=== PATIENT | female | born 1940 | race Caucasian/White ===

== ENCOUNTER → 2017-11-02 03:00 | Outpatient (CLI) | payer MEDICARE, OTHER, SELFPAY ==
[2017-11-02 11:08] LABS: ALT 60 U/L (12-78); AST 34 U/L (15-37); Albumin 3.9 g/dL (3.4-5.0); Alkaline Phosphatase 74 U/L (46-116); Anion Gap 9.6 mmol/L (3-11); BUN 14 mg/dL (7-18); Bilirubin, Total 0.6 mg/dL (0.2-1.0); CO2 30.4 mmol/L (21.0-32.0); CREATININE 1.06 mg/dL (0.55-1.02); Calcium 8.5 mg/dL (8.5-10.1); Chloride 102 mmol/L (98-107); Cholesterol 231 mg/dL (50-200); Estimated GFR 50.54 (mL/min/1.73m2); Glucose 84 mg/dL (70-100); HDL Cholesterol 64 mg/dL (40-60); LDL CHOLESTEROL 148 mg/dL (<100); Potassium 3.8 mmol/L (3.5-5.1); Sodium 142 mmol/L (136-145); Total Protein 7.6 g/dL (6.4-8.2); Triglyceride 134 mg/dL (30-150)
== END ==
DX: E78.5 Hyperlipidemia, unspecified (principal); K21.9 Gastro-esophageal reflux disease without esophagitis; R63.8 Other symptoms and signs concerning food and fluid intake; M15.9 Polyosteoarthritis, unspecified
CPT/HCPCS: 36415; 80053; 80061; 83721

== ENCOUNTER 2018-06-13 15:49 | Outpatient (CLI) | payer MEDICARE, BC, OTHER, SELFPAY ==
--- NOTE | 2018-06-13 14:30 | DI.US_ITS ---
SYMPTOM/DIAGNOSIS: POPLITEAL PAIN, ABSENT PULSES, ? DVT, M79.609 RIGHT LOWER EXTREMITY ULTRASOUND: The femoral and popliteal veins and visualized calf veins are freely compressible. No thrombus is visible. The doppler venous wave form augments normally. The saphenous vein appears free of thrombus. A Cruz's cyst is seen measuring 4.5 cm. in length. IMPRESSION: Cruz's cyst. No evidence of DVT.
== END 2018-06-13 16:09 ==
PROVIDERS: Visit Provider Nurse Practitioner Family
DX: M79.604 Pain in right leg (principal); M71.21 Synovial cyst of popliteal space [Baker], right knee
CPT/HCPCS: 93971

== ENCOUNTER 2018-06-28 10:55 | Outpatient (CLI) | payer MEDICARE, OTHER, SELFPAY ==
--- NOTE | 2018-06-28 10:53 | DI.RAD_ITS ---
SYMPTOMS/DIAGNOSIS: PAIN RIGHT KNEE: Two views. No priors. There is chondrocalcinosis present. There is moderate narrowing of the patellofemoral joint space. Periarticular spurring is seen involving the lateral femorotibial joint and the patellofemoral joint. The bones are intact. No radiopaque foreign bodies are seen in the soft tissues. IMPRESSION: Mild to moderate arthritic changes of the right knee.
== END 2018-06-28 11:15 ==
PROVIDERS: Visit Provider Orthopaedic Surgery
DX: M25.561 Pain in right knee (principal); M17.11 Unilateral primary osteoarthritis, right knee
CPT/HCPCS: 20610; 99201; 73560; J1040

== ENCOUNTER 2018-09-28 01:41 | Outpatient (CLI) | payer MEDICARE, OTHER, SELFPAY ==
[2018-09-28 09:55] LABS: ALT 58 U/L (12-78); AST 37 U/L (15-37); Albumin 3.9 g/dL (3.4-5.0); Alkaline Phosphatase 78 U/L (46-116); BUN 22 mg/dL (7-18); Bilirubin, Total 0.7 mg/dL (0.2-1.0); CREATININE 0.93 mg/dL (0.55-1.02); Calcium 8.8 mg/dL (8.5-10.1); Calculated LDL 138 mg/dL; Chloride 104 mmol/L (98-107); Cholesterol 207 mg/dL (50-200); Estimated GFR 58.61 (mL/min/1.73m2); Glucose 100 mg/dL (70-100); HDL Cholesterol 45 mg/dL (40-60); Potassium 4.4 mmol/L (3.5-5.1); Sodium 143 mmol/L (136-145); Total Protein 7.2 g/dL (6.4-8.2); Triglyceride 122 mg/dL (30-150)
== END 2018-09-28 02:01 ==
DX: K21.9 Gastro-esophageal reflux disease without esophagitis (principal); M85.80 Other specified disorders of bone density and structure, unspecified site; R06.09 Other forms of dyspnea; R63.8 Other symptoms and signs concerning food and fluid intake; Z78.9 Other specified health status; E78.5 Hyperlipidemia, unspecified
CPT/HCPCS: 36415; 80053; 80061; 83721

== ENCOUNTER 2020-04-16 03:30 | Outpatient (CLI) | payer MEDICARE, OTHER, SELFPAY ==
[2020-04-16 13:06] LABS: ALT 53 U/L (14-59); AST 29 U/L (15-37); Albumin 3.9 g/dL (3.4-5.0); Alkaline Phosphatase 65 U/L (46-116); Anion Gap 5.8 mmol/L (3-11); BUN 18 mg/dL (7-18); Bilirubin, Total 0.6 mg/dL (0.2-1.0); CO2 29.2 mmol/L (21.0-32.0); CREATININE 0.95 mg/dL (0.55-1.02); Calcium 8.7 mg/dL (8.5-10.1); Calculated LDL 134 mg/dL (<100); Chloride 105 mmol/L (98-107); Cholesterol 213 mg/dL (<200); Estimated GFR 57.04 (mL/min/1.73m2); Glucose 102 mg/dL (74-106); HDL Cholesterol 49 mg/dL (40-60); Potassium 4.2 mmol/L (3.5-5.1); Sodium 140 mmol/L (136-145); Total Protein 7.2 g/dL (6.4-8.2); Triglyceride 152 mg/dL (<150)
== END 2020-04-16 03:50 ==
DX: E78.5 Hyperlipidemia, unspecified (principal)
CPT/HCPCS: 36415; 80053; 80061

== ENCOUNTER 2022-06-24 16:44 | Outpatient (REF) | payer MEDICARE, OTHER, SELFPAY ==
[2022-06-24 13:10] LABS: TSH (W/Ref FT4) 2.65 uIU/mL (0.36-3.74)
== END 2022-06-24 16:45 | disposition home or self-care (01) ==
LOC: LBN 16:44
PROVIDERS: PCP Nurse Practitioner Family; Visit Provider Nurse Practitioner Family
DX: E78.5 Hyperlipidemia, unspecified (principal); R23.2 Flushing
CPT/HCPCS: 84443

== ENCOUNTER 2022-06-26 00:57 | Outpatient (CLI) | payer MEDICARE, OTHER, SELFPAY ==
--- NOTE | 2022-06-26 10:06 | DI.RAD_ITS ---
Exam(s) XR ARTHRITIS SERIES EXAM: XR ARTHRITIS SERIES CLINICAL HISTORY: increasing pain, OSTEOARTHRITIS,M15.9. TECHNIQUE: 2D digital imaging was performed. Three images were obtained. COMPARISON: No exams were available for comparison FINDINGS: BONES: No acute fracture is present. No bony destructive lesion is seen. JOINTS: No dislocation present. In the left hand, there are marked degenerative changes present. Th e findings are characterized by joint space narrowing and bony hypertrophy. In the wrist, the findin gs are most marked at the 1st CMC joint and the interphalangeal joints of the fingers. There is some narrowing of the 3rd and 4th MCP joints. In the right hand and wrist, there are marked degenerative changes characterized by joint space narrowing and bony hypertrophy. In the right wrist, the findin gs are most marked at the articulation of the scaphoid and the trapezium. In the hand, findings are most marked at the distal interphalangeal joints. SOFT TISSUE: Chondrocalcinosis of the TFCC is seen bilaterally. IMPRESSION: Marked osteoarthritis of the hands and wrist as described. DATA REPOSITORY: RADIATION DOSE DELIVERED:
--- NOTE | 2022-06-26 10:07 | DI.RAD_ITS ---
Exam(s) XR KNEE RT 3V AP,LAT,JAIME EXAM: XR KNEE RT 3V AP,LAT,JAIME CLINICAL HISTORY: increasing pain RT KNEE, M25.561. TECHNIQUE: 2D digital imaging was performed of the right knee. Three views obtained. AP, lateral an d PA tunnel views were obtained. COMPARISON: CR XR knee RT 2V AP,lat from 06/28/2018 FINDINGS: BONES: No acute fracture is present. No bony destructive lesion is seen. JOINTS: The knee is normally aligned. No joint effusion is seen. Mild narrowing of the medial femoral tibial joint is present. There is chondrocalcinosis seen both medially and laterally. There is mar ked narrowing of the patellofemoral joint. Tricompartment spurring is present. SOFT TISSUE: Normal. IMPRESSION: Osteoarthritis of the knee. Findings are most marked at the patellofemoral joint. DATA REPOSITORY: RADIATION DOSE DELIVERED:
== END 2022-06-26 01:17 ==
LOC: DI 00:58
PROVIDERS: PCP Nurse Practitioner Family; Visit Provider Nurse Practitioner Family
DX: M25.561 Pain in right knee (principal); M15.9 Polyosteoarthritis, unspecified
CPT/HCPCS: 73562; 73120

== ENCOUNTER → 2022-07-28 10:32 | Outpatient (BNVA) | payer MEDICARE, BC, OTHER, SELFPAY | PROVIDERS: PCP Nurse Practitioner Family; Referring Provider Nurse Practitioner Family; Visit Provider Physician Assistant | DX: M17.11 Unilateral primary osteoarthritis, right knee (principal) | CPT/HCPCS: 20610; 99203; J1040 ==

== ENCOUNTER 2022-10-02 22:44 | Emergency (ER) | payer MEDICARE, BC, OTHER, SELFPAY ==
[2022-10-02 22:52] VITALS: BP 165/87; PULSE 58; RESP 22; TEMP 36.4; O2SAT 92
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
--- NOTE | 2022-10-02 23:06 | DI.CT_ITS ---
Exam(s) CT THORACIC LUMBAR SPINE REC EXAM: CT THORACIC LUMBAR SPINE REC CLINICAL HISTORY: fall, back pain TECHNIQUE: COMPARISON: CT CT CHEST/ABD/PEL W from 10/03/2022 FINDINGS: THORACIC SPINAL COLUMN: No evidence of acute fracture or listhesis. No facet arthropathy nor so face t malalignment. No acute compromise of the canal. There are fractures of both 1st ribs as well as fracture of the right 2nd rib LUMBOSACRAL SPINAL COLUMN: No evidence of compression fracture or listhesis. No pars defects. Advan timoteo chronic disc space narrowing at L5-S1 level noted. Mild facet degenerative changes. No facet ma lalignment. IMPRESSION: No acute fractures of the thoracic and lumbar spinal columns. Subtle fractures of upper ribs as described above.
--- NOTE | 2022-10-02 23:06 | DI.CT_ITS ---
Exam(s) CT CHEST/ABD/PEL W EXAM: CT CHEST/ABD/PEL W CLINICAL HISTORY: fall, thoracic back pain. TECHNIQUE: Imaging Protocol: Axial computed tomography images with coronal and sagittal reformatted images were created and reviewed CONTRAST MATERIAL: Intravenous: Omnipaque 350 Contrast volume:100 ml Oral: None COMPARISON: CT CT THORACIC LUMBAR SPINE REC from 10/03/2022 FINDINGS: CHEST: Please note this patient has fracture of left side of C2 vertebral body as seen on other CT scan perf ormed same date. RIBS/LUNGS: There is a subtle age indeterminate fracture both 1st ribs as well as posterior lateral a spect of the right 2nd rib. There is also a displaced fracture of the posterior aspect of the right 3rd rib with overlying pleural thickening and a mildly displaced fracture of the lateral aspect of th e right 4th rib. No other rib fractures identified. No sternal fracture. No clavicular fractures. There is mild infiltrate posteriorly in the right upper lobe and superior segment right lower lobe, t his is probably related to the adjacent fractures. There is also some infiltrate in the anterior bas al segment of the left lower lobe and inferior lingular segment of the left lung as well as the basal segments. No associated pleural effusions. There is no evidence of pneumothorax. A calcified gran uloma is incidentally noted in the right middle lobe. MEDIASTINUM: No evidence of sternal fracture or mediastinal hematoma. No hilar adenopathy. Calcifie d subcarinal lymph nodes noted. No axillary nor supraclavicular adenopathy. Thyroid unremarkable. CARDIAC: Heart size is normal. There is no pericardial effusion.Coronary artery calcification in the LAD noted-moderate. Caliber thoracic aorta is upper normal. No dissection. OSSEOUS: Multiple rib fractures as described above.No vertebral fractures evident.. ABDOMEN: There is no ascites. No evidence of mesenteric nor bowel wall hematoma. LIVER: Liver is hypodense implying steatosis. No evidence of liver laceration. No a patent lesions. No dilated intrahepatic ducts. GALLBLADDER/BILIARY: Gallbladder is contracted. No obvious calculi. CBD is not dilated. PANCREAS: No evidence of pancreatic mass nor dilatation of the pancreatic duct. SPLEEN: Spleen size normal. No laceration. Splenic granuloma noted. Splenic and portal veins are p atent. ADRENALS: There are no significant adrenal masses. KIDNEYS: No evidence of renal laceration. No significant focal renal findings. No calculi. No hydr onephrosis.. ABDOMINAL AORTA: Upper normal size. No dissection. Aortoiliac segments patent. LYMPH NODES: There is no retroperitoneal nor paraaortic adenopathy. ABDOMINAL WALL: No evidence of significant anterior abdominal wall nor inguinal hernia. GI: There is no evidence of bowel obstruction. PELVIS: LYMPH NODES: There is no intrapelvic nor inguinal adenopathy. GI: No evidence of appendicitis.No evidence of sigmoid diverticulitis. URINARY BLADDER: No calculi nor masses evident REPRODUCTIVE: Uterus surgically absent. No abnormal adnexal masses. No free fluid in the pelvis. OSSEOUS: No significant osseous lesions. No fractures. Chronic disc space narrowing L5-S1. IMPRESSION: 1. There are fractures of the right 1st, 2nd, 3rd, and 4th ribs, with the posterior aspect right 3rd rib fracture being significantly displaced. There is also a fracture of the left 1st rib. 2. Scattered lung infiltrates which are probably related to hypoinflation secondary to the rib fractu res. There are no pleural effusions and there is no pneumothorax. 3. No acute findings in the abdomen pelvis. First read by [facility]. Final report called by myself to ER physician 10/03/2022 RADIATION DOSE DELIVERED: 1196.66 mGy.cm Total DLP DATA REPOSITORY: All CT scans at this facility are submitted to the National Radiology Data Registry (NRDR) Dose Index Registry (DIR) with the [employer] (ACR). RADIATION OPTIMIZATION: All CT scans at this facility use at least one of these dose optimization te chniques: automated exposure control; mA and/or kV adjustment per patient size (includes targeted exa ms where dose is matched to clinical indication); or iterative reconstruction.
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
[2022-10-02 23:33] LABS: Abs Immature Grans 0.13 10^3/uL (0.0-0.06); Absolute Basophil Count 0.04 10^3/uL (0.0-0.2); Absolute Eosinophil Count 0.07 10^3/uL (0.0-0.7); Absolute Lymphocyte Count 1.17 10^3/uL (1.2-3.4); Absolute Monocyte Count 0.57 10^3/uL (0.1-0.8); Absolute Neutrophil Count 7.13 10^3/uL (1.2-6.7); Basophils % 0.4; Eosinophils % 0.8; HCT 36.3 % (36.0-46.0); HGB 12.2 g/dL (11.2-15.7); Immature Grans % 1.4; Lymphocytes % 12.8; MCH 33.2 pg (27.0-33.0); MCHC 33.6 % (32.0-36.0); MCV 99 fL (80-95); MPV 8.7 fL (8.0-11.0); Monocytes % 6.3; Neutrophils % 78.3; Platelet Count 258 10^3/uL (130-400); RBC 3.67 10^6/uL (3.93-5.22); RDW-SD 43.7 fL; WBC 9.11 10^3/uL (4.4-10.8)
[2022-10-02 23:47] LABS: Prothrombin Time 10.1 sec (9.3-11.0)
[2022-10-02] MEDS: Normal Saline 500 ML IV (23:49)
[2022-10-02 23:50] LABS: ALT 94 U/L (14-59); AST 114 U/L (15-37); Albumin 3.4 g/dL (3.4-5.0); Alkaline Phosphatase 79 U/L (46-116); Anion Gap 7.7 mmol/L (3-11); BUN 21 mg/dL (7-18); Bilirubin, Total 0.3 mg/dL (0.2-1.0); CO2 27.3 mmol/L (21.0-32.0); CREATININE 0.8 mg/dL (0.55-1.02); Calcium 8.6 mg/dL (8.5-10.1); Chloride 102 mmol/L (98-107); ETHANOL BLOOD 121.9 mg/dL (<10); Estimated GFR 74.44 (mL/min/1.73m2); Glucose 161 mg/dL (74-106); Lipase 56 U/L (16-77); Magnesium 1.8 mg/dL (1.8-2.4); Potassium 3.2 mmol/L (3.5-5.1); Sodium 137 mmol/L (136-145); Total Protein 7.4 g/dL (6.4-8.2)
[2022-10-03] VITALS (51 sets, daily range): BP systolic 146–155; BP diastolic 69–110; PULSE 64–74; RESP 9–18; TEMP 36.7; O2SAT 92–96
[2022-10-03 00:07] LABS: Bilirubin Negative (Negative); Blood Small (Negative); Clarity Clear (Clear); Glucose Negative (Negative); Ketones Negative (Negative); Leukocyte Esterase Trace (Negative); Nitrite Positive (Negative); Urobilinogen 0.2 mg/dL (Up to 0.2)
[2022-10-03 00:08] LABS: Bacteria Moderate HPF (Negative); C & S Indicated? No/Sq. Contamination; Casts Negative LPF (Negative); Crystals Negative HPF (Negative); Epithelial Cells Moderate HPF (Negative); Mucus Negative (Negative)
[2022-10-03] MEDS: Normal Saline - Diluent 50 ML VIAL IJ ×2 (00:12→01:03)
[2022-10-03] MEDS: Omnipaque 350 MG/ML 100 ML BTL IJ ×2 (00:12→01:02)
--- NOTE | 2022-10-03 00:15 | DI.CT_ITS ---
Exam(s) CT BRAIN NECK CTA EXAM: CT BRAIN NECK CTA CLINICAL HISTORY: Fx C1 2 into V aa foramen. TECHNIQUE: Imaging Protocol: Axial CT angiography was performed with multi-slice acquisition and mu lti-planar and/or 3D reconstructions. CONTRAST MATERIAL: Intravenous: Omnipaque 350 Contrast volume:structured data in ml COMPARISON: CT CT THORACIC LUMBAR SPINE REC from 10/03/2022 FINDINGS: CTA Neck W: Aortic arch anatomy: The aortic arch anatomy is conventional and there is no significant stenosis at the origin of the great vessels off of the aortic arch. No intimal flap evident. Anterior circulation: Both common carotid arteries ascend with normal luminal diameters. At the level the carotid bulbs and proximal internal carotid arteries there is minimal plaque without hemodynamically significant stenosis evident. Posterior circulation: Both vertebral arteries originate in conventional fashion off of the subclavian arteries and there is no obvious stenosis at the origin of the vertebral arteries. Both vertebral arteries exhibit normal luminal diameters within the foramen transversarium. No evidence of compromise of the left vertebral artery lumen at the level of the left C2 fracture sit e. Above this level there is some plaque in the left vertebral artery at the skull base but without tight stenosis, intraluminal thrombus, nor dissection. Both vertebral arteries contribute to the formation of the basilar artery at the skull base. CTA Brain W: Anterior circulation: Both internal carotid arteries are patent in the skull base-carotid canals. There is circumferential mural calcification of the internal carotid arteries within the cavernous sinuses but without high-g rade stenosis. The supraclinoid aspects of the ICAs are patent. Both A1 segments are patent as are the anterior cer ebral arteries and there is no evidence of aneurysm at the level of the anterior communicating artery . Both middle cerebral arteries are patent with no evidence of significant stenosis nor intraluminal th rombus. There also no aneurysms of these vessels. Posterior circulation: The basilar artery ascends in the midline. Distally it gives off patent bilateral superior cerebella r arteries. Above this level the basilar artery terminates as patent bilateral posterior cerebral arteries. There is no evidence of aneurysm at the tip of the basilar artery nor elsewhere in the [id number] is. CT BRAIN: There is no evidence of intracranial hemorrhage, mass effect, or shift of midline structures. There are no extra-axial fluid collections. Ventricles are not enlarged or shifted. There are no ring enh ancing lesions in the brain and no abnormal meningeal enhancement. IMPRESSION: 1. Patent carotid arteries in the neck. No hemodynamically significant stenosis. 2. Patent vertebral arteries. No intraluminal thrombus nor dissection. No obvious abnormality of th e vessel at the level of the left side C2 vertebral artery fracture. 3. Patent intracranial arteries. 4. No acute intracranial findings. RADIATION DOSE DELIVERED: 2,315.27mGy.cm Total DLP DATA REPOSITORY: All CT scans at this facility are submitted to the National Radiology Data Registry (NRDR) Dose Index Registry (DIR) with the [employer] ([employer]). RADIATION OPTIMIZATION: All CT scans at this facility use at least one of these dose optimization te chniques: automated exposure control; mA and/or kV adjustment per patient size (includes targeted exa ms where dose is matched to clinical indication); or iterative reconstruction.
--- NOTE | 2022-10-03 00:16 | DI.VRAD_ITS ---
Addendum created by Vitaly Clements MD on 10/03/2022 12:20:34 AM EDT: THIS REPORT CONTAINS FINDINGS THAT MAY BE CRITICAL TO PATIENT CARE. The findings were verbally communicated via telephone conference with Shilpa Linton at 12:18 AM EDT on 10/03/2022. The findings were acknowledged and understood. Initial report created on 10/03/2022 12:16:07 AM EDT: PROCEDURE INFORMATION: Exam: CT Cervical Spine Without Contrast Exam date and time: 10/02/2022 11:52 PM Age: 82 years old Clinical indication: Injury or trauma; Fall; Concussion/head injury TECHNIQUE: Imaging protocol: Computed tomography of the cervical spine without contrast. Radiation optimization: All CT scans at this facility use at least one of these dose optimization techniques: automated exposure control; mA and/or kV adjustment per patient size (includes targeted exams where dose is matched to clinical indication); or iterative reconstruction. COMPARISON: No relevant prior studies available. FINDINGS: Bones/joints: There is a left-sided C2 fracture in the lateral mass extending into the vertebral artery foramen. Faint fracture of the inferior aspect of the left C1 lateral mass noted. The C1 and C2 neural arches are otherwise grossly intact Loss of cervical lordosis is presumably on a degenerative basis. No significant central canal stenosis. Multilevel foraminal stenosis Lungs: Mild apical scarring Soft tissues: Unremarkable. IMPRESSION: Acute left-sided C1 and C2 fractures. Involvement of the left vertebral artery foramen. Consider CT angiography of the head and neck Dictated and Authenticated by: Vitaly Clements MD. Ordering:JAZMÍN Massey MD
--- NOTE | 2022-10-03 00:18 | DI.VRAD_ITS ---
PROCEDURE INFORMATION: Exam: CT Chest With Contrast; Diagnostic Exam date and time: 10/03/2022 12:01 AM Age: 82 years old Clinical indication: Injury or trauma; Generalized; Blunt trauma (contusions or hematomas); Injury details: Fall ETOH; Additional info: Fall, thoracic back pain TECHNIQUE: Imaging protocol: Diagnostic computed tomography of the chest with contrast. Radiation optimization: All CT scans at this facility use at least one of these dose optimization techniques: automated exposure control; mA and/or kV adjustment per patient size (includes targeted exams where dose is matched to clinical indication); or iterative reconstruction. Contrast material: OMNI 350; Contrast volume: 100 ml; Contrast route: INTRAVENOUS (IV); COMPARISON: CT CERVICAL SPINE WO 10/02/2022 11:52 PM FINDINGS: Lungs: Mild subsegmental atelectasis versus scarring. Calcified right middle lobe granuloma No consolidation. No masses. Pleural spaces: Unremarkable. No pneumothorax. No pleural effusion. Heart: Unremarkable. No cardiomegaly. No pericardial effusion. Lymph nodes: Unremarkable. No enlarged lymph nodes. Vasculature: Unremarkable. No aortic aneurysm. Bones/joints: Unremarkable. No acute fracture. Soft tissues: Unremarkable. IMPRESSION: No acute findings. PROCEDURE INFORMATION: Exam: CT Abdomen And Pelvis With Contrast Exam date and time: 10/03/2022 12:01 AM Age: 82 years old Clinical indication: Injury or trauma; Generalized; Blunt trauma (contusions or hematomas); Injury details: Fall ETOH; Additional info: Fall, thoracic back pain TECHNIQUE: Imaging protocol: Computed tomography of the abdomen and pelvis with contrast. Radiation optimization: All CT scans at this facility use at least one of these dose optimization techniques: automated exposure control; mA and/or kV adjustment per patient size (includes targeted exams where dose is matched to clinical indication); or iterative reconstruction. Contrast material: OMNI 350; Contrast volume: 100 ml; Contrast route: INTRAVENOUS (IV); COMPARISON: No relevant prior studies available. FINDINGS: Liver: Hepatomegaly and diffuse fatty infiltrationNo mass. Gallbladder and bile ducts: Contracted No calcified stones. No ductal dilation. Pancreas: Normal. No ductal dilation. Spleen: Normal. No splenomegaly. Adrenal glands: Normal. No mass. Kidneys and ureters: Left renal scarring noted. Questionable hypodense focus in the anterior left renal upper pole. Additional indeterminate hypodensity in the mid to lower poles of the kidneys No hydronephrosis. Stomach and bowel: Unremarkable. No obstruction. No mucosal thickening. Appendix: No evidence of appendicitis. Intraperitoneal space: Unremarkable. No free air. No significant fluid collection. Vasculature: Unremarkable. No abdominal aortic aneurysm. Lymph nodes: Unremarkable. No enlarged lymph nodes. Urinary bladder: Unremarkable as visualized. Reproductive: Unremarkable as visualized. Bones/joints: Unremarkable. No acute fracture. Soft tissues: Unremarkable. IMPRESSION: No acute findings. No solid organ injury detected Questionable abnormal left kidney as described which may represent focal pyelonephritis versus underlying lesion. Consider further evaluation on a nonurgent basis if not already performed Dictated and Authenticated by: Vitaly Clements MD. Ordering:JAZMÍN Massey MD
--- NOTE | 2022-10-03 00:27 | DI.VRAD_ITS ---
PROCEDURE INFORMATION: Exam: CT Thoracic Spine Without Contrast Exam date and time: 10/03/2022 12:01 AM Age: 82 years old Clinical indication: Injury or trauma; Fall; Blunt trauma (contusions or hematomas); Additional info: Fall, thoracic back pain TECHNIQUE: Imaging protocol: Computed tomography of the thoracic spine without contrast. Radiation optimization: All CT scans at this facility use at least one of these dose optimization techniques: automated exposure control; mA and/or kV adjustment per patient size (includes targeted exams where dose is matched to clinical indication); or iterative reconstruction. COMPARISON: CT CERVICAL SPINE WO 10/02/2022 11:52 PM FINDINGS: Bones/joints: No acute fracture. Alignment is grossly maintained. No significant disc bulge or herniation. No severe spinal canal stenosis. No significant neural foraminal narrowing. Soft tissues: Unremarkable. Left 1st rib fracture noted of indeterminate age IMPRESSION: No acute thoracic fracture Left 1st rib fracture of indeterminate age PROCEDURE INFORMATION: Exam: CT Lumbar Spine Without Contrast Exam date and time: 10/03/2022 12:01 AM Age: 82 years old Clinical indication: Injury or trauma; Fall; Blunt trauma (contusions or hematomas); Additional info: Fall, thoracic back pain TECHNIQUE: Imaging protocol: Computed tomography of the lumbar spine without contrast. Radiation optimization: All CT scans at this facility use at least one of these dose optimization techniques: automated exposure control; mA and/or kV adjustment per patient size (includes targeted exams where dose is matched to clinical indication); or iterative reconstruction. COMPARISON: No relevant prior studies available. FINDINGS: Bones/joints: No acute fracture. Alignment is grossly maintained. No significant disc bulge or herniation. No severe spinal canal stenosis. No significant neural foraminal narrowing. Soft tissues: Unremarkable. IMPRESSION: No acute findings. Dictated and Authenticated by: Vitaly Clements MD. Ordering:JAZMÍN Massey MD
[2022-10-03] MEDS: HYDROmorphone 2 MG/ML SYR 1 MG IVP (00:36)
[2022-10-03] MEDS: Ondansetron 4 MG/2 ML VIAL 8 MG IVP (00:38)
[2022-10-03] MEDS: Normal Saline 1,000 ML 1000 ML IV (00:38)
--- NOTE | 2022-10-03 01:00 | RT.EKG_ITS ---
APPROVED REPORT Exam: Resting ECG Reason for Exam: trauma Patient Location: E HR:67 bpm ECG Measurements Heart Rate 67 AXIS WI 173 P 46 QRSd 90 QRS -38 QT 450 T -15 QTc 474 Conclusion Sinus rhythm...normal P axis, V-rate 60- 99 Atrial premature complex...SV complex w/ short R-R interval Inferior infarct, old...Q >35mS, II III aVF Q waves inferiorly, flipped T waves V1-4, flat T waves V5,6 new vs 2007
--- NOTE | 2022-10-03 01:27 | DI.VRAD_ITS ---
PROCEDURE INFORMATION: Exam: CT Head Without Contrast Exam date and time: 10/03/2022 12:53 AM Age: 82 years old Clinical indication: Injury or trauma; Fall; Concussion/head injury and other: Radiologist recommended cta head and neck due to c1-c2 fracture TECHNIQUE: Imaging protocol: Computed tomography of the head without contrast. Radiation optimization: All CT scans at this facility use at least one of these dose optimization techniques: automated exposure control; mA and/or kV adjustment per patient size (includes targeted exams where dose is matched to clinical indication); or iterative reconstruction. COMPARISON: CT CERVICAL SPINE WO 10/02/2022 11:52 PM FINDINGS: Brain: Streak artifact in the posterior fossa limits evaluation. There are moderate periventricular and subcortical lucencies consistent with chronic microvascular ischemic changes. The leblanc-white differentiation is maintained. No hemorrhage. No edema. Cerebral ventricles: No ventriculomegaly. Paranasal sinuses: Visualized sinuses are unremarkable. No fluid levels. Mastoid air cells: Visualized mastoid air cells are well aerated. Bones/joints: Unremarkable. No acute fracture. Soft tissues: Unremarkable. IMPRESSION: No acute intracranial abnormality. Chronic microvascular ischemic changes. Evaluation is suboptimal in the posterior fossa due to streak artifact. PROCEDURE INFORMATION: Exam: CTA Head Without And With Contrast, Arteriography Exam date and time: 10/03/2022 12:53 AM Age: 82 years old Clinical indication: Injury or trauma; Fall; Concussion/head injury and other: Radiologist recommended cta head and neck due to c1-c2 fracture TECHNIQUE: Imaging protocol: Computed tomographic angiography of the head without and with contrast. Exam focused on the arteries. 3D rendering (Not supervised by radiologist): MIP and/or 3D reconstructed images were created by the technologist. Contrast material: OMNI 350; Contrast volume: 85 ml; Contrast route: INTRAVENOUS (IV); COMPARISON: CT CERVICAL SPINE WO 10/02/2022 11:52 PM FINDINGS: ANTERIOR CIRCULATION: Right internal carotid artery: Intracranial segment is patent with no significant stenosis or occlusion. No aneurysm. Right middle cerebral artery: No occlusion or significant stenosis. No aneurysm. Right anterior cerebral artery: No occlusion or significant stenosis. No aneurysm. Left internal carotid artery: Intracranial segment is patent with no significant stenosis. No aneurysm. Left middle cerebral artery: No occlusion or significant stenosis. No aneurysm. Left anterior cerebral artery: No occlusion or significant stenosis. No aneurysm. POSTERIOR CIRCULATION: Right vertebral artery: No occlusion or significant stenosis. No aneurysm. Left vertebral artery: No occlusion or significant stenosis. No aneurysm. Basilar artery: No occlusion or significant stenosis. No aneurysm. Right posterior cerebral artery: No occlusion or significant stenosis. No aneurysm. Left posterior cerebral artery: No occlusion or significant stenosis. No aneurysm. HEAD: Brain: Normal. No hemorrhage. Unremarkable white matter. No mass effect. Cerebral ventricles: Normal. No ventriculomegaly. Bones/joints: Unremarkable. No acute fracture. Paranasal sinuses: Visualized sinuses are normal. No fluid levels. Mastoid air cells: Visualized mastoids are normal. No mastoid effusion. Soft tissues: Unremarkable. IMPRESSION: No large vessel occlusion. PROCEDURE INFORMATION: Exam: CTA Neck Without And With Contrast Exam date and time: 10/03/2022 12:53 AM Age: 82 years old Clinical indication: Injury or trauma; Fall; Concussion/head injury and other: Radiologist recommended cta head and neck due to c1-c2 fracture TECHNIQUE: Imaging protocol: Computed tomographic angiography of the neck without and with contrast. 3D rendering (Not supervised by radiologist): MIP and/or 3D reconstructed images were created by the technologist. Radiation optimization: All CT scans at this facility use at least one of these dose optimization techniques: automated exposure control; mA and/or kV adjustment per patient size (includes targeted exams where dose is matched to clinical indication); or iterative reconstruction. Contrast material: OMNI 350; Contrast volume: 85 ml; Contrast route: INTRAVENOUS (IV); COMPARISON: CT CERVICAL SPINE WO 10/02/2022 11:52 PM FINDINGS: Right common carotid artery: No stenosis. No dissection or occlusion. Right internal carotid artery: No stenosis of the extracranial segment. No dissection or occlusion. Right external carotid artery: No occlusion or stenosis of the origin. Left common carotid artery: No stenosis. No dissection or occlusion. Left internal carotid artery: No stenosis of the extracranial segment. No dissection or occlusion. Left external carotid artery: No occlusion or stenosis of the origin. Right vertebral artery: No stenosis. No dissection or occlusion. Left vertebral artery: No stenosis. No dissection or occlusion. Soft tissues: Normal. No significant soft tissue swelling. Bones/joints: No acute fracture. IMPRESSION: No stenosis or occlusion. REFERENCES: NASCET CRITERIA. The degree of stenosis in the cervical segment of the internal carotid artery is based on NASCET criteria. Normal is no stenosis. Mild is less than 50% stenosis. Moderate is 50-69% stenosis. Severe is 70% to 99% stenosis. Total occlusion is no detectable patent lumen. Dictated and Authenticated by: Shane Parmar MD. Ordering:JAZMÍN Massey MD
--- NOTE | 2022-10-03 02:19 | NUR.NOTE ---
2308: Pt BIBEMS w/ c-collar in place and high concern for cervical spine injury. Explained cervical spine precautions to pt, who was moving all extremities vigorously and trying to turn/sit up etc unassisted. Advised pt that this was a high risk behavior multiple times and attempted to provide education and redirect pt. Despite all these interventions and effective pain management, pt still needs occasional reminder to remain compliant w/ prescribed activity restriction
== END 2022-10-03 02:44 | disposition short-term general hospital (02) ==
PROVIDERS: Emergency Provider Emergency Medicine; PCP Nurse Practitioner Family
DX: S12.000A Unspecified displaced fracture of first cervical vertebra, initial encounter for closed fracture (principal); S12.100A Unspecified displaced fracture of second cervical vertebra, initial encounter for closed fracture; S22.32XA Fracture of one rib, left side, initial encounter for closed fracture; W10.9XXA Fall (on) (from) unspecified stairs and steps, initial encounter
CPT/HCPCS: 70496; 70498; 74177; 80053; 82805; 83690; 93005; 96361; 96374; 96375; 99285; 71260; 72125; 80320; 81003; 81015; 83735; 85025; 85610; 85730; 93010; J1170; J2405; J3490

== ENCOUNTER 2024-07-05 01:49 | Outpatient (CLI) | payer MEDICARE, BC, OTHER, SELFPAY ==
--- NOTE | 2024-07-05 07:15 | DI.RAD_ITS ---
Exam(s) XR KNEE LT 3V AP,LAT,JAIME EXAM: XR KNEE LT 3V AP,LAT,JAIME CLINICAL HISTORY: continued LT KNEE PAIN,M25.552. TECHNIQUE: 2D digital imaging was performed. Three views. COMPARISON: CR LEFT KNEE 3 VIEW COMPLETE from 01/17/2015 CR XR KNEE RT 3V AP,LAT,JAIME from 06/26/2022 FINDINGS: BONES: No acute fracture is present. No bony destructive lesion is seen. JOINTS: Moderate narrowing of the medial femoral tibial joint space, worsening from prior. Periartic ular spurring and mild varus angulation. Chondrocalcinosis. No joint effusion is seen. There is s evere narrowing of the patellofemoral joint, with a [id number] appearance. SOFT TISSUE: Normal. 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 Moderate degenerative changes of the medial femoral tibial joint. DATA REPOSITORY: RADIATION DOSE DELIVERED:
== END 2024-07-05 02:09 ==
PROVIDERS: PCP Nurse Practitioner Family; Visit Provider Nurse Practitioner Family
DX: M17.12 Unilateral primary osteoarthritis, left knee (principal)
CPT/HCPCS: 73562

== ENCOUNTER → 2024-08-03 13:20 | Outpatient (BNVA) | payer MEDICARE, BC, OTHER, SELFPAY | PROVIDERS: PCP Nurse Practitioner Family; Referring Provider Nurse Practitioner Family; Visit Provider Physician Assistant | DX: M17.12 Unilateral primary osteoarthritis, left knee (principal) | CPT/HCPCS: 20610; J1010 ==